=== PATIENT | female | born 2000 | race American Indian/Alaskan Native ===

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

== ENCOUNTER 2019-02-02 05:19 | Emergency (ER) | payer OTHER ==
[2019-02-02 05:26] VITALS: BP 111/62
[2019-02-02 05:57] LABS: Basophils % (Auto) 0.2 % (0.0-1.8); Eosinophils # (Auto) 0.2 K/mm3 (0.0-0.4); Eosinophils % (Auto) 2.1 % (0.0-4.3); Hematocrit 33.4 % (30.3-42.9); Hemoglobin 10.9 gm/dl (10.1-14.3); Lymphocytes # (Auto) 2.1 K/mm3 (1.2-5.4); Lymphocytes % (Auto) 21.1 % (13.4-35.0); Mean Corpuscular HGB Conc 33 % (30-34); Mean Corpuscular Volume 86 fl (79-97); Monocytes # (Auto) 0.5 K/mm3 (0.0-0.8); Monocytes % (Auto) 5.2 % (0.0-7.3); Platelet Count 243 K/mm3 (140-440); Red Blood Count 3.88 M/mm3 (3.65-5.03); Red Cell Distribution Width 13.7 % (13.2-15.2)
[2019-02-02 06:00] LABS: Bacteria,Urine 2+ /HPF (Negative); Bilirubin,Urine NEG (Negative); Blood,Urine NEG (Negative); Color,Urine Yellow (Yellow); Mucus,Urine 3+ /HPF; Protein,Urine <15 mg/dL mg/dL (Negative); Urobilinogen,Urine < 2.0 mg/dL (<2.0)
--- NOTE | 2019-02-02 09:44 | Ultrasound Report ---
ULTRASOUND OBSTETRIC INDICATION: with pelvic pain and vaginal bleeding. TECHNIQUE: Transabdominal. COMPARISON: None available. FINDINGS: GESTATIONAL SAC: Well-defined oval shape and intrauterine in location. YOLK SAC: No significant abnormality. EMBRYO/FETUS: No significant abnormality. - [place]-Rump Length = 6.25 cm = 12 weeks, 5 day(s). - Heart Rate = 146 beats per minute. ADNEXA: The right ovary is normal in size and appearance. The left ovary is not seen. FREE FLUID: None seen. ADDITIONAL FINDINGS: There is a small suspected subchorionic hematoma measuring up to 1.5 cm. A 1.7 probable uterine fundal fibroid is also seen. IMPRESSION: 1. Single, living intrauterine with estimated sonographic age of 13 weeks, 0 day(s). Signer Name: Jorge Garcia MD Signed: 02/02/2019 9:39 AM Workstation Name: [id number]
--- NOTE | 2019-02-02 10:11 | Emergency Department Report ---
ED Female HPI - General Chief complaint: Vaginal Bleeding Stated complaint: VAG BLEEDING/12WKS Time Seen by Provider: 02/02/19 07:43 Source: patient Mode of arrival: Ambulatory Limitations: No Limitations - History of Present Illness MD Complaint: vaginal bleeding, vaginal discharge -: Gradual - Related Data Allergies Allergy/AdvReac Type Severity Reaction Status Date / Time No Known Allergies Allergy Unverified 12/11/18 13:55 ED Review of Systems ROS: Stated complaint: VAG BLEEDING/12WKS Other details as noted in HPI Comment: All other systems reviewed and negative ED Past Medical Hx - Past Medical History Previous Medical History?: No - Surgical History Past Surgical History?: No - Social History Smoking Status: Never Smoker Substance Use Type: None ED Physical Exam - General Limitations: No Limitations General appearance: alert, in no apparent distress - Head Head exam: Present: atraumatic, normocephalic - Eye Eye exam: Present: normal appearance, PERRL, EOMI. Absent: scleral icterus, conjunctival injection Pupils: Present: normal accommodation - ENT ENT exam: Present: normal exam, normal orophraynx, mucous membranes moist. Absent: TM's normal bilaterally - Neck Neck exam: Present: normal inspection, full ROM. Absent: tenderness - Respiratory Respiratory exam: Present: normal lung sounds bilaterally. Absent: respiratory distress - Cardiovascular Cardiovascular Exam: Present: regular rate, normal rhythm. Absent: systolic murmur, diastolic murmur, rubs, gallop - GI/Abdominal GI/Abdominal exam: Present: soft, normal bowel sounds - Extremities Exam Extremities exam: Present: normal inspection - Back Exam Back exam: Present: normal inspection - Neurological Exam Neurological exam: Present: alert, oriented X3, CN II-XII intact, normal gait - Psychiatric Psychiatric exam: Present: normal affect, normal mood - Skin Skin exam: Present: warm, dry, intact, normal color. Absent: rash ED Course Vital Signs 02/02/19 05:23 Temperature 98.4 F Pulse Rate 80 Respiratory 18 Rate Blood Pressure 111/62 O2 Sat by Pulse 100 Oximetry ED Medical Decision Making - Lab Data Result diagrams: 02/02/19 05:34 - Radiology Data Radiology results: report reviewed [facility] [address] [place] [address] Ultrasound Report Signed Patient: DEB SCHWAB MR#: [id number] : 2000 Acct:[id number] Age/Sex: 18 / F ADM Date: 02/02/19 Loc: ED Attending Dr: Ordering Physician: ROM ARRINGTON Date of Service: 02/02/19 Procedure(s): US OB <= 14 weeks fetus Accession Number(s): [id number] cc: ROM ARRINGTON ULTRASOUND OBSTETRIC INDICATION: with pelvic pain and vaginal bleeding. TECHNIQUE: Transabdominal. COMPARISON: None available. FINDINGS: GESTATIONAL SAC: Well-defined oval shape and intrauterine in location. YOLK SAC: No significant abnormality. EMBRYO/FETUS: No significant abnormality. - [place]-Rump Length = 6.25 cm = 12 weeks, 5 day(s). - Heart Rate = 146 beats per minute. ADNEXA: The right ovary is normal in size and appearance. The left ovary is not seen. FREE FLUID: None seen. ADDITIONAL FINDINGS: There is a small suspected subchorionic hematoma measuring up to 1.5 cm. A 1.7 probable uterine fundal fibroid is also seen. IMPRESSION: 1. Single, living intrauterine with estimated sonographic age of 13 weeks, 0 day(s). Signer Name: Jorge Garcia MD Signed: 02/02/2019 9:39 AM Workstation Name: [id number] Transcribed By: MN Dictated By: Jorge Garcia MD Electronically Authenticated By: Jorge Garcia MD Signed Date/Time: 02/02/19 0939 - Medical Decision Making Workup: CBC, BMP, UA, bHCG, Type&Screen, 1st Trimester Ultrasound Based on History, Exam, and ED Workup patients presentation not consistent with ectopic , molar , life-threatening coagulopathy, trauma, serious bacterial infection, central process or other emergency. Disposition: Will discharge home with return precautions and instruction for prompt OBGYN follow up. Critical care attestation.: If time is entered above; I have spent that time in minutes in the direct care of this critically ill patient, excluding procedure time. ED Disposition Clinical Impression: Threatened miscarriage in early Disposition: DC-01 TO HOME OR SELFCARE Is pt being admited?: No Does the pt Need Aspirin: No Condition: Stable Instructions: Threatened Miscarriage (ED) Additional Instructions: The ultrasound showed a normal a copy has been provided to her discharge for your viewing and that of the TELE RN. Please return to emergency department should she experience any fever, abdominal pain, sweats, chest pain, palpitations or any suggestion that her condition is worsening. Please call the ER for unsure of what to do Referrals: [facility] [Provider Group] - 2-3 Days
== END 2019-02-02 10:14 | disposition home or self-care (01) ==
LOC: ED 05:19
DX: O20.0 Threatened abortion (principal); Z3A.13 13 weeks gestation of pregnancy
CPT/HCPCS: 36415; 76801; 81001; 84702; 85025; 86900; 86901

== ENCOUNTER 2019-02-17 10:13 | Emergency (ER) | payer OTHER ==
[2019-02-17] MEDS ORDERED: diphenhydrAMINE 50 MG/ML VIAL IV STA (10:34)
[2019-02-17] MEDS ORDERED: METOCLOPRAMIDE 10 MG/2 ML INJ IV STA (10:34)
[2019-02-17] MEDS ORDERED: SODIUM CHLORIDE 0.9% 1000 ML 1,000 ML IV ONE (10:34)
[2019-02-17] MEDS ORDERED: PYRIDOXINE 50 MG TAB PO SCH (11:00)
[2019-02-17 11:21] LABS: Hematocrit 36.1 % (30.3-42.9); Hemoglobin 11.9 gm/dl (10.1-14.3); Mean Corpuscular HGB Conc 33 % (30-34); Mean Corpuscular Volume 86 fl (79-97); Platelet Count 232 K/mm3 (140-440); Red Blood Count 4.22 M/mm3 (3.65-5.03); Red Cell Distribution Width 13.5 % (13.2-15.2)
[2019-02-17 11:48] LABS: Alanine Aminotransferase 9 units/L (7-56); Albumin 4.3 g/dL (3.9-5); BUN/Creatinine Ratio 22; Blood Urea Nitrogen 11 mg/dL (7-17); Calcium 9.5 mg/dL (8.4-10.2); Hemolysis Index 1
[2019-02-17 12:06] LABS: Basophils % (Manual) 0 % (0.0-1.8); Eosinophils % (Manual) 0 % (0.0-4.3); Platelet Estimate Consistent w Auto; RBC Morphology Normal; Total Cells Counted 100
--- NOTE | 2019-02-17 13:09 | Emergency Department Report ---
ED Abdominal Pain HPI - General Chief Complaint: Nausea/Vomiting/Diarrhea Stated Complaint: EMESIS Time Seen by Provider: 02/17/19 10:34 Source: patient Mode of arrival: Ambulatory Limitations: No Limitations - History of Present Illness MD Complaint: abdominal pain -: Gradual Location: diffuse Radiation: none Migration to: no migration Severity: mild Improves With: nothing Worsens With: nothing Context: possible food poisoning (may have eaten some bad cube steak also is at 4 months), other Associated Symptoms: nausea, vomiting. denies: dysuria, hematemesis, hematochezia, melena, hematuria, anorexia, syncope - Related Data Previous Rx's Medication Instructions Recorded Last Taken Type Metoclopramide [Reglan] 10 mg PO TID PRN #30 tab 02/17/19 Unknown Rx Pyridoxine [Vitamin B-6 50MG TAB] 50 mg PO DAILY #30 tab 02/17/19 Unknown Rx Allergies Allergy/AdvReac Type Severity Reaction Status Date / Time No Known Allergies Allergy Verified 02/17/19 10:15 ED Review of Systems ROS: Stated complaint: EMESIS Other details as noted in HPI Comment: All other systems reviewed and negative ED Past Medical Hx - Past Medical History Previous Medical History?: No - Surgical History Past Surgical History?: No - Social History Smoking Status: Never Smoker Substance Use Type: None - Medications Home Medications: Home Medications Medication Instructions Recorded Confirmed Last Taken Type Metoclopramide [Reglan] 10 mg PO TID PRN #30 tab 02/17/19 Unknown Rx Pyridoxine [Vitamin B-6 50MG TAB] 50 mg PO DAILY #30 tab 02/17/19 Unknown Rx ED Physical Exam - General Limitations: No Limitations General appearance: alert, in no apparent distress - Head Head exam: Present: atraumatic, normocephalic - Eye Eye exam: Present: normal appearance, PERRL, EOMI - ENT ENT exam: Present: mucous membranes moist - Neck Neck exam: Present: normal inspection - Respiratory Respiratory exam: Present: normal lung sounds bilaterally. Absent: respiratory distress - Cardiovascular Cardiovascular Exam: Present: regular rate, normal rhythm. Absent: systolic murmur, diastolic murmur, rubs, gallop - GI/Abdominal GI/Abdominal exam: Present: soft, tenderness (general mild discomfort), normal bowel sounds. Absent: distended, guarding, rebound, rigid - Extremities Exam Extremities exam: Present: normal inspection - Back Exam Back exam: Present: normal inspection - Neurological Exam Neurological exam: Present: alert, oriented X3 - Psychiatric Psychiatric exam: Present: normal affect, normal mood - Skin Skin exam: Present: warm, dry, intact, normal color. Absent: rash ED Course Vital Signs 02/17/19 10:19 Temperature 97.6 F Pulse Rate 93 H Respiratory 16 Rate Blood Pressure 113/64 O2 Sat by Pulse 100 Oximetry ED Medical Decision Making - Lab Data Result diagrams: 02/17/19 10:53 02/17/19 10:53 - Medical Decision Making This patient presents with abdominal pain of unclear etiology. Their evaluation has not identified a emergent etiology for the abdominal pain. Specifically, given the very benign exam, normal laboratory studies, and lack of significant risk factors, I have a very low suspicion for appendicitis, ischemic bowel, bowel perforation, or any other life threatening disease. Although the cause of this patient's symptoms are not clear overall well-appearing and suspected to have a transient course of illness versus hyperemesis gravidarum I have discussed with the patient the level of uncertainty with undifferentiated abdominal pain and clearly explained the need to follow-up as noted on the disch arge instructions, or return to the Emergency Department immediately if the pain worsens, develops fever, persistent and uncontrollable vomiting, or for any new symptoms or concerns. I discussed with the patient that this presentation today for abdominal pain could represent a significant risk for an acute abdominal process. Although the tests in the ED were essentially normal, there is still a possibility of a process such as appendicitis, diverticulitis, cholecystitis, ulcer, early bowel obstruction, mesenteric ischemia, kidney stone, or even kidney infection which could subsequently cause disability or . The patient understands that they must return within 24 hours for a recheck or see their physician within 24 hours for re-exam due to the possibility of significant surgical or medical process. Reassessment: After treatment, the patient is feeling much better, tolerating PO fluids, and shows no signs of dehydration. Disposition: Discharge home with prompt primary care physician follow up in the next 48 hours. Strict return precautions discussed. Thrombolysis provided at this present time will continue with palliative care and treat her nausea and vomiting with Reglan, vitamins B6 and also Diclegis Critical care attestation.: If time is entered above; I have spent that time in minutes in the direct care of this critically ill patient, excluding procedure time. ED Disposition Clinical Impression: Nausea & vomiting Disposition: DC-01 TO HOME OR SELFCARE Is pt being admited?: No Does the pt Need Aspirin: No Condition: Stable Instructions: Acute Nausea and Vomiting (ED) Additional Instructions: You should return to the hospital if you experience return of persistent nausea and vomiting that does not resolve and does not allow you to tolerate any food or fluids, persistent fevers for greater than 2-3 more days, increasing abdominal pain that persists despite medications, persistent diarrhea, dizziness, syncope (fainting), or for any other concerns. For more information about how to make your own rehydration solution if you experience diarrhea/vomiting please visit: [email or web address] Prescriptions: Metoclopramide [Reglan] 10 mg PO TID PRN #30 tab PRN Reason: nausea Pyridoxine [Vitamin B-6 50MG TAB] 50 mg PO DAILY #30 tab
[2019-02-17 13:35] VITALS: BP 110/59
== END 2019-02-17 13:36 | disposition home or self-care (01) ==
LOC: ED 10:13
DX: R10.9 Unspecified abdominal pain (principal); R11.2 Nausea with vomiting, unspecified
CPT/HCPCS: 36415; 80053; 85007; 85025; 96361; 96374; 96375; 99283; J1200; J2765; J7030

== ENCOUNTER 2019-07-12 12:46 | Outpatient (CLI) | payer OTHER ==
[2019-07-12] MEDS ORDERED: LACTATED RINGERS 500 ML IV ONE (13:23)
[2019-07-12] MEDS ORDERED: LACTATED RINGERS 1,000 ML IV SCH (14:00)
[2019-07-12 14:32] LABS: Bacteria,Urine 1+ /HPF (Negative); Bilirubin,Urine NEG (Negative); Blood,Urine NEG (Negative); Color,Urine Yellow (Yellow); Mucus,Urine FEW /HPF; Protein,Urine <15 mg/dL mg/dL (Negative); Urobilinogen,Urine < 2.0 mg/dL (<2.0)
[2019-07-12 14:57] VITALS: BP 107/69
--- NOTE | 2019-07-12 15:09 | Event Note ---
Date: 07/12/19 (s/p US) OK 18 Reactive NST Occ ctx with FM Pt states it hurts when the baby moves. SVE closed,long,OOP D/C home has appt tomorrow in office. Vistaril po given. Encouraged to call with any concerns
--- NOTE | 2019-07-12 16:19 | Ultrasound Report ---
ULTRASOUND OBSTETRIC LIMITED INDICATION / CLINICAL INFORMATION: Premature leakage of fluid. COMPARISON: OB ultrasound from 02/02/2019. FINDINGS: A single live intrauterine is seen in cephalic presentation with a heart rate of 173 bpm. The amniotic fluid index measures 18.2 cm. IMPRESSION: Single live intrauterine with a normal OK of 18.2 cm. Signer Name: Jorge Garcia MD Signed: 07/12/2019 4:15 PM Workstation Name: [id number]
== END 2019-07-12 15:40 | disposition home or self-care (01) ==
LOC: TRG 12:46 → APU 12:51 → TRG 15:40
PROVIDERS: ATTEND Obstetrics & Gynecology
DX: O47.03 False labor before 37 completed weeks of gestation, third trimester (principal); Z3A.35 35 weeks gestation of pregnancy
CPT/HCPCS: 59025; 76815; 81001; Q0177